=== PATIENT | male | born 1980 | race American Indian/Alaskan Native ===

== ENCOUNTER 2017-01-22 09:43 | Inpatient (IN) | payer MEDICAID, OTHER ==
[2017-01-22 09:43] VITALS: BMI 25.8
[2017-01-22 10:32] LABS: BASO # 0.1 K/uL (0.0-0.2); EOS # 0.2 K/uL (0.0-0.7); EOS % 2.7 % (0.0-4.0); HEMATOCRIT 41.3 % (35.0-51.0); LYMPH # 1.9 K/uL (1.0-4.3); LYMPH % 23.3 % (20.0-40.0); MEAN CELL VOLUME 91.1 fL (80.0-94.0); MEAN CORPUSCULAR HEMOGLOBIN 30.7 pg (27.0-31.0); MEAN CORPUSCULAR HGB CONC 33.7 g/dL (33.0-37.0); MEAN PLATELET VOLUME 7.3 fL (7.2-11.7); MONO # 0.8 K/uL (0.0-0.8); MONO % 9.2 % (0.0-10.0); RED CELL DISTRIBUTION WIDTH 12.9 % (11.5-14.5); WHITE BLOOD COUNT 8.2 K/uL (4.8-10.8)
[2017-01-22 10:37] LABS: RBC URINE < 1 /hpf (0-3); URINE BILIRUBIN NEGATIVE (NEGATIVE); URINE BLOOD NEGATIVE (NEGATIVE); URINE COLOR Yellow (YELLOW); URINE GLUCOSE (UA) NORMAL (Normal); URINE KETONE NEGATIVE (NEGATIVE); URINE LEUKOCYTE ESTERASE NEG Leu/uL (Negative); URINE PROTEIN NEGATIVE (NEGATIVE); URINE UROBILINOGEN NORMAL mg/dL (0.2-1.0); WBC URINE < 1 /hpf (0-5)
[2017-01-22 10:42] LABS: CHLORIDE 105 mmol/L (98-107)
[2017-01-22 10:43] LABS: POTASSIUM 3.9 mmol/L (3.6-5.2); SODIUM 143 mmol/L (132-148)
[2017-01-22 10:45] LABS: ALB/GLOB RATIO 1.3 (1.0-2.1); ALKALINE PHOSPHATASE 80 U/L (38-126); ALT/SGPT 34 U/L (21-72); AST/SGOT 24 U/L (17-59); BILIRUBIN,TOTAL 0.5 mg/dL (0.2-1.3); BLOOD UREA NITROGEN 10 mg/dL (9-20); CARBON DIOXIDE 28 mmol/L (22-30); GFR AFRICAN-AMERICAN > 60; GLUCOSE,RANDOM 83 mg/dL (75-110); TOTAL PROTEIN 6.8 g/dL (6.3-8.3)
[2017-01-22 10:46] LABS: ALCOHOL SERUM < 10 mg/dl (0-10); CALCIUM 8.7 mg/dl (8.6-10.4)
--- NOTE | 2017-01-22 10:49 | C.PDOC ---
History Of Present Illness Pt is here requesting detox from Heroin. Time Seen by Provider: 01/22/17 10:04 Chief Complaint (Nursing): Substance Abuse History Per: Patient Onset/Duration Of Symptoms: Days Current Symptoms Are (Timing): Still Present Suicide/Self Injury Attempted (Context): None Modifying Factor(s): Alcohol, Narcotics, Cocaine Severity: Moderate Associated Symptoms: Depression Additional History Per: Prior Records Past Medical History Reviewed: Historical Data, Nursing Documentation, Vital Signs Vital Signs: Last Vital Signs Temp 98.8 F 01/22/17 09:52 Pulse 85 01/22/17 09:52 Resp 20 01/22/17 09:52 BP 138/89 01/22/17 09:52 Pulse Ox 100 01/22/17 10:49 - Medical History PMH: Depression (Dx at kg put on lexapro), Hepatitis (C) - [facility] Procedures DETOXIFICATION SERVICES FOR SUBSTANCE ABUSE TREATMENT (01/25/16) GROUP COORDINATOR MINING PRODUCTS FOR SUBSTANCE ABUSE TREATMENT, PSYCHOEDUCATION (01/25/16) Family History: States: Unknown Family Hx - Social History Hx Tobacco Use: Yes Hx Alcohol Use: Yes Hx Substance Use: Yes (IVDU Heroin) - Immunization History Hx Tetanus Toxoid Vaccination: No Hx Influenza Vaccination: No Hx Pneumococcal Vaccination: No Review Of Systems Except As Marked, All Systems Reviewed And Found Negative. Constitutional: Negative for: Fever Cardiovascular: Negative for: Chest Pain Respiratory: Negative for: Shortness of Breath Gastrointestinal: Negative for: Vomiting Musculoskeletal: Negative for: Neck Pain Neurological: Negative for: Weakness Psych: Negative for: Psychosis Physical Exam - Physical Exam Appears: Non-toxic, No Acute Distress Skin: Warm, Dry Head: Atraumatic, Normacephalic Eye(s): bilateral: PERRL, EOMI Neck: Normal ROM, Supple Cardiovascular: Rhythm Regular Respiratory: Normal Breath Sounds, No Accessory Muscle Use Gastrointestinal/Abdominal: Soft, No Tenderness Extremity: Normal ROM, Other (Track hansen on arms) Neurological/Psych: Oriented x3, Normal Motor, Normal Sensation ED Course And Treatment - Laboratory Results Result Diagrams: 01/22/17 10:29 01/22/17 10:29 Lab Interpretation: No Acute Changes O2 Sat by Pulse Oximetry: 100 Pulse Ox Interpretation: Normal Progress Note: Pt is medically stable for detox/psych admission. Disposition Counseled Patient/Family Regarding: Studies Performed, Diagnosis - Disposition Disposition: HOSPITALIZED Disposition Time: 12:02 Condition: STABLE - Clinical Impression Clinical Impression: Depressed, Opioid dependence, Drug abuse Decision To Admit - Pt Status Changed To: Hospital Disposition Of: Inpatient - Admit Certification Admit to Inpatient:: After my assessment, the patient will require hospitalization for at least two midnights. This is because of the severity of symptoms shown, intensity of services needed, and/or the medical risk in this patient being treated as an outpatient. - InPatient: Physician Admission Certification: I certify that this patient requires 2 or more midnights of care for the following reason:: Psych - . Bed Request Type: Psychiatry Admitting Physician: Saleem Lindsey Patient Diagnosis: Depressed, Opioid dependence, Drug abuse
[2017-01-22] MEDS ORDERED: Aluminum Hydroxide/Magnesium Hydroxide Susp (30 mL) PO PRN (12:38)
--- NOTE | 2017-01-22 13:12 | PCM.BM ---
<Rosie Nieto - Last Filed: 01/22/17 13:10> Treatment Plan Problems - Problems identified on initial assessmt Heroin Detox Date Initiated: 01/22/17 Time Initiated: 13:11 Assessment reference: NA Status: Active Treatment assets and liabiliti Patient Assests: cooperative, ADL independent Patient Liabilities: live alone (Homeless), poor support system, substance abuse (Heroin Abuse) - Milieu Protocol Maintain good personal hygiene: daily Encourage regular showers, daily Remind patient to perform daily oral care, daily Assist patient to perform ADL's Maintain personal safety: every shift Educate patient to report safety concerns to staff, every shift Monitor environment for contraband/sharps Medication safety: Monitor for expected outcome, potential side effects: daily, Assess barriers to learning: daily, Assess readiness for medication education: daily <Wilda Mendoza - Last Filed: 01/24/17 11:12> Family Contact Family involvement: Famliy/SO not involved - Goals for Treatment Patient goals for treatment: "I guess I want a program." Discharge/Continuing Care - Education Needs Education Needs: Patient Medication, Patient Coping Skills, Patient Placement options, Patient Community resources - Discharge Discharge Criteria: Tolerates medication w/o severe side effects, No longer exhibiting s/s of withdrawal Discharge to:: Substance Abuse Rehab - Treatment Team Participation Discussed with Family/SO: No Was Patient/Family/SO present at Treatment Team Meeting: Yes <Fifi Tam - Last Filed: 01/24/17 11:18> - Diagnosis (1) Depressed Status: Acute Interventions: 01/24/17 11:17 * Assess/adjust medications daily and /or as needed * See patient on an individual basis 7x/week to assess level of depressive behaviors and stability * Discuss risks, benefits, side effects and alternatives of medications * (2) Opioid dependence Status: Acute Interventions: 01/24/17 11:18 * Assess 7x/week regarding severity of withdrawal * Educate regarding risks, benefits, side effects and alternatives of medications * Use Motivational Interviewing for abstinence * Use CBT for relapse prevention * Medication management for withdrawal symptoms * Encourage medication assisted treatment *
--- NOTE | 2017-01-23 12:29 | PCM.PSYCH ---
Initial Psychiatric Evaluation - Initial Psychiatric Evaluation Type of Admission: Voluntary Legal Status: Capacity Chief Complaint (in patient's own words): "I want to stop getting high." History of Present Illness and Precipitating Events: Pt. is seen, chart reviewed, and case discussed with staff. Pt. is a 36 y/o male with depression and long history of heroin dependence. Pt. presented to the ED with suicidal ideation and and reports to having agitation, irritability, anxiety, and depressed mood. He claims that these sxs. are what usually leads him to "get high." As per pt., he uses 7-8 bags of heroin IV daily for the past 7 years. His last use was two days ago. Pt. reports the longest period of sobriety was for 1 year. He reports to currently having withdrawal symptoms including yawning, runny nose , tearing, and feeling cold/hot. Pt. also reports to using cocaine sporadically and smokes 1/2 pack of cigarettes daily. He claims to drinking 1/2 pint of liquor and two, 24oz of beer daily. Pt. reports to being in detox here at [facility] once and rehab 2x. Pt. denies visual and auditory hallucinations and denies suicidal and homicidal ideation. After care discussed. Pt. states he wants to find a program to go to after discharge. Psych Hx: depression (was on Lexapro) PMH: denies, but according to previous records, has history of Hep.C Allergies: denies Family Psych Hx: unknown (both parents at young age) Social Hx: single; 3 children; currently unemployed and homeless (pt. states he "just gets by"); highest education completed--high school Current Medications: Active Medications Generic Name Dose Route Start Last Admin Trade Name Freq PRN Reason Stop Dose Admin Al Hydrox/Mg Hydrox/Simethicone 30 ml 01/22/17 12:38 Maalox 30 Ml PO TID PRN Indigestion / Heartburn Clonidine HCl 0.1 mg 01/22/17 12:38 Catapres PO Q8 PRN COWS Score More or Equal to 5 Gabapentin 300 mg 01/22/17 14:00 01/23/17 09:40 Neurontin PO 300 mg TID LINDY Administration Haloperidol 5 mg 01/22/17 12:46 Haldol PO Q1H PRN agitation, max 4x/24h Hydroxyzine HCl 50 mg 01/22/17 12:39 Atarax PO Q6H PRN Anxiety Loperamide HCl 2 mg 01/22/17 12:38 Imodium PO Q8 PRN Diarrhea Methadone HCl 15 mg 01/23/17 10:00 01/23/17 09:40 Methadone PO 01/27/17 09:59 15 mg Q24H LINDY Administration Taper Mirtazapine 15 mg 01/22/17 22:00 01/22/17 23:00 Remeron PO 15 mg HS LINDY Administration Ondansetron HCl 4 mg 01/22/17 12:38 Zofran Tab PO Q8 PRN Nausea/Vomiting Pneumococcal Polyvalent Vaccine 0.5 ml 01/25/17 10:00 Pneumovax 23 Vaccine IM 01/25/17 10:01 .ONCE ONE Trazodone HCl 100 mg 01/22/17 12:39 01/22/17 23:00 Desyrel PO 100 mg HS PRN Administration Insomnia Past Psychiatric History - Past Psychiatric History Previous Treatment History: None Pertinent Medical Hx (Current Medical&Sleep Prob, Allergies): Allergies Allergy/AdvReac Type Severity Reaction Status Date / Time No Known Allergies Allergy Verified 01/22/17 09:55 No Known Home Med 04/01/15 Review of Systems - Review of Systems All systems: reviewed and no additional remarkable complaints except - Psychiatric Psychiatric: Anxiety, Depression, Irritability, Suicidal Ideation Mental Status Examination - Personal Presentation Personal Presentation: Looks stated age - Affect Affect: Constricted, Depressed - Motor Activity Motor Activity: Calm - Reliability in Providing Information Reliability in Providing Information: Fair - Speech Speech: Organized - Mood Mood: Depressed, Anxious - Formal Thought Process Formal Thought Process: No Impairment - Obsessions/Compulsions Obsessions: No Compulsions: No - Cognitive Functions Orientation: Person, Place, Situation, Time Sensorium: Alert Attention/Concentration: Attentive Abstract Thinking: [place] Estimate of Intelligence: Below average Judgement: Imparied, as evidence by: Poor judgement, Imparied, as evidence by: Lack of insight into illness - Risk Risk: Suicidal, Withdrawal, Diminished functioning - Limitations Limitations: Living alone DSM 5 DX - DSM 5 DSM 5 Diagnosis: Major depressive disorder recurrent severe without psychotic features Opioid use disorder severe Opioid withdrawal Cocaine use disorder severe - Recommended/Plan of Treatment Treatment Recommendations and Plan of Treatment: Major depressive disorder recurrent severe without psychotic features Remeron 15 mg PO HS Groups and individual treatment Support, psychoeducation, CBT Opioid use disorder severe CBT for relapse prevention Psychoeducation Supportive therapy, individual therapy Use [place] for abstinence Opioid withdrawal Methadone taper Gabapentin for augmentation Support and psychoeducation daily Attend group activities daily Consider and encourage MAT Refer to after care. Pt. will meet with SW to figure out a program Cocaine use disorder severe CBT for relapse prevention Psychoeducation Supportive therapy, individual therapy Use [place] for abstinence Projected ELOS: 6-7 days - Smoking Cessation Smoking Cessation Initiated: No
--- NOTE | 2017-01-23 12:30 | PCM.PYCHPN ---
Psychiatric Progress Note - Psychiatric Progress Note Patient seen today, length of contact: 15 min. Patient Chief Complaint: "I need help." Problems Identified/Issues Discussed: Pt. is seen, chart reviewed, and case discussed with staff. Pt. reports to still having some withdrawal sxs.--sneezing, leg pain, tearing, and sweats. Pt. denies suicidal and homicidal ideation. Pt. also denies visual and auditory hallucinations. He remained isolated and withdrawn and admits of depressed mood and at times feelings of worthlessness. Symptoms are improving, but needs more time to stabilize. After care discussed, support and psychoeducation given. Pt. will talk to to find a program to go to after discharge. Medication Change: No Medical Record Reviewed: Yes Mental Status Examination - Cognitive Function Orientation: Person, Place, Situation, Time Memory: Intact Attention: WNL Concentration: Poor Association: WNL Fund of Knowledge: WNL - Mood Mood: Depressed, Anxious - Affect Affect: Constricted, Depressed - Speech Speech: Soft - Formal Thought Process Formal Thought Process: No Impairment - Suicidal Ideation Suicidal Ideation: No - Homicidal Ideation Homicidal Ideation: No Goal/Treatment Plan - Goal/Treatment Plan Need for Continued Stay: Remain at risks for inpatient hospitalization, Severe depression anxiety, Discharge may exacerbated symptoms Progress Toward Problem(s) and Goals/Treatment Plan: Major depressive disorder recurrent severe without psychotic features Remeron 15 mg PO HS Trazodone 100 mg pO QHS Groups and individual treatment Support, psychoeducation, CBT Opioid use disorder severe CBT for relapse prevention Psychoeducation Supportive therapy, individual therapy Use [place] for abstinence Opioid withdrawal Methadone taper Gabapentin for augmentation Support and psychoeducation daily Attend group activities daily Consider and encourage MAT Refer to after care. Pt. will meet with to figure out a program. Cocaine use disorder severe CBT for relapse prevention Psychoeducation Supportive therapy, individual therapy Use [place] for abstinence - Smoking Cessation Smoking Cessation Initiated: No
--- NOTE | 2017-01-24 11:15 | PCM.PYCHPN ---
Psychiatric Progress Note - Psychiatric Progress Note Patient seen today, length of contact: 15 min. Patient Chief Complaint: I feel better. Problems Identified/Issues Discussed: Pt. is seen, chart reviewed, and case discussed with staff. Pt. reports he feels better with the medications and slept well through the night. Symptoms are improving, but needs more time to stabilize. After care discussed, support and psychoeducation given. Pt. is open to [facility] or maybe an inpatient rehab in [place]. Medication Change: No Medical Record Reviewed: Yes Mental Status Examination - Cognitive Function Orientation: Person, Place, Situation, Time Memory: Intact Attention: WNL Concentration: WNL Association: [facility] Fund of Knowledge: WN - Mood Mood: Depressed, Anxious - Affect Affect: Constricted, Depressed - Speech Speech: Soft - Formal Thought Process Formal Thought Process: No Impairment - Suicidal Ideation Suicidal Ideation: No - Homicidal Ideation Homicidal Ideation: No Goal/Treatment Plan - Goal/Treatment Plan Need for Continued Stay: Remain at risks for inpatient hospitalization, Severe depression anxiety, Discharge may exacerbated symptoms Progress Toward Problem(s) and Goals/Treatment Plan: Major depressive disorder recurrent severe without psychotic features Remeron 15 mg PO HS Trazodone 100 mg pO QHS Groups and individual treatment Support, psychoeducation, CBT Opioid use disorder severe CBT for relapse prevention Psychoeducation Supportive therapy, individual therapy Use [place] for abstinence Opioid withdrawal Methadone taper Gabapentin for augmentation Support and psychoeducation daily Attend group activities daily Consider and encourage MAT Refer to after care. Pt. decide on [facility] or inpatient rehab. Cocaine use disorder severe CBT for relapse prevention Psychoeducation Supportive therapy, individual therapy Use [place] for abstinence Estimated Date of D/C: 01/26/17
[2017-01-24 16:04] VITALS: O2SAT 95
[2017-01-25 07:30] VITALS: BP 130/85; PULSE 78; RESP 18; TEMP 97.7
--- NOTE | 2017-01-25 09:33 | PCM.PYCHDC ---
Mental Status Examination - Mental Status Examination Orientation: Person, Place, Situation, Time Memory: Intact Mood: Neutral Affect: Constricted Speech: Soft Attention: WNL Concentration: WNL Association: WNL Fund of Knowledge: WNL Formal Thought Process: No Impairment Description of patient's judgement and insight: good, fair Psychotic Thoughts and Behaviors: denies any AVH Suicidal Ideation: No Current Homicidal Ideation?: No Discharge Summary - Discharge Note Reason for Hospitalization: Pt. is seen, chart reviewed, and case discussed with staff. Pt. is a 36 y/o male with depression and long history of heroin dependence. Pt. presented to the ED with suicidal ideation and and reports to having agitation, irritability, anxiety, and depressed mood. He claims that these sxs. are what usually leads him to "get high." As per pt., he uses 7-8 bags of heroin IV daily for the past 7 years. His last use was two days ago. Pt. reports the longest period of sobriety was for 1 year. He reports to currently having withdrawal symptoms including yawning, runny nose , tearing, and feeling cold/hot. Pt. also reports to using cocaine sporadically and smokes 1/2 pack of cigarettes daily. He claims to drinking 1/2 pint of liquor and two, 24oz of beer daily. Pt. reports to being in detox here at [facility] once and rehab 2x. Pt. denies visual and auditory hallucinations and denies suicidal and homicidal ideation. After care discussed. Pt. states he wants to find a program to go to after discharge. Consultations:: List each consultation separately and include: 1. Reason for request. 2. Findings. 3. Follow-up Summary of Hospital Course include:: 1. Description of specific treatment plan utilized for patients during their course of treatmen. 2. Summarize the time- course for resolution of acute symptoms and/or regressed behaviors. 3. Describe issues identified and worked on during hospitalization. 4. Describe medication utilized. 5. Describe medical problems identified and treated. 6. Reassessment of suicide risk Summary of Hospital Course: During the course of his stay, patient (pt) started progressively improving and he no longer remained irritable, depressed, and suicidal. His mood was improved and he started attending groups and meetings and started socializing. Patient denied any feelings of hopelessness, helplessness, and worthlessness, denied any problem with the sleep or appetite, denied suicidal ideation or homicidal ideation. Pt denied any auditory or visual hallucinations. Some changes were made in his current medications and patient was discharged on following medications. He tolerated these medications very well and denied any side effects. CBT and [place] were used. - Diagnosis (1) Depressed Status: Acute (2) Opioid dependence Status: Acute - Final Diagnosis (DSM 5) Condition upon Discharge: STABLE DSM 5: Major depressive disorder recurrent severe without psychotic features Opioid use disorder severe Opioid withdrawal Cocaine use disorder severe Disposition: HOME/ ROUTINE Follow-up Treatment Plan: Education: Pt was educated and counseled about the risks and benefits of taking and not taking medications. Pt was educated and counseled about the risks of drinking and abusing drugs. Pt was educated and counseled to go to the ER or call 911 if pt develop suicidal ideation or homicidal ideation, worsening of symptoms or severe side effects of the meds. Prescriptions/Medication Reconciliation: Gabapentin [Neurontin] 300 mg PO BID #60 cap Mirtazapine [Remeron] 15 mg PO HS #30 tab traZODone [Desyrel] 100 mg PO HS PRN #30 tab PRN Reason: Insomnia - Smoking Cessation Smoking Cessation Medication prescribed: No - Antipsychotic Medications Pt discharged on 2 or more routine antipsychotic medications: No
[2017-01-25] MEDS ORDERED: Pneumococcal 23-Valent Vaccine IM ONE (10:00)
== END 2017-01-25 12:20 | disposition home or self-care (01) | DRG 885 ==
LOC: C.ER 09:43 → C.5E 12:03
PROVIDERS: ADMIT Psychiatry & Neurology Psychiatry; ATTEND Psychiatry & Neurology Psychiatry
PROC: GZ58ZZZ Individual Psychotherapy, Cognitive-Behavioral (ICD-10-PCS; principal; 2017-01-22)
PROC: GZ56ZZZ Individual Psychotherapy, Supportive (ICD-10-PCS; 2017-01-22)
PROC: HZ52ZZZ Individual Psychotherapy for Substance Abuse Treatment, Cognitive-Behavioral (ICD-10-PCS; 2017-01-22)
PROC: HZ59ZZZ Individual Psychotherapy for Substance Abuse Treatment, Supportive (ICD-10-PCS; 2017-01-22)
PROC: HZ56ZZZ Individual Psychotherapy for Substance Abuse Treatment, Psychoeducation (ICD-10-PCS; 2017-01-22)
PROC: HZ2ZZZZ Detoxification Services for Substance Abuse Treatment (ICD-10-PCS; 2017-01-22)
DX: F33.2 Major depressive disorder, recurrent severe without psychotic features (principal); R45.851 Suicidal ideations; F11.23 Opioid dependence with withdrawal; F17.210 Nicotine dependence, cigarettes, uncomplicated; F14.90 Cocaine use, unspecified, uncomplicated; F41.9 Anxiety disorder, unspecified

== ENCOUNTER 2018-05-16 06:40 | Inpatient (IN) | payer MEDICAID, OTHER ==
[2018-05-16 06:40] VITALS: BMI 25.1
--- NOTE | 2018-05-16 06:58 | C.PDOC ---
History Of Present Illness Patient is a 38 year old male who presents to the ED for SI. Patient says that he does not have a plan, but he has been feeling this way for several days and has walked to the hospital form [place]. He has stopped drinking last night but admits to using heroin and cocaine several hours ago, by inhalation and injection. Patient denies taking any pills, having falls, hallucinations, trauma, or any other medical complaints at the present moment. Time Seen by Provider: 05/16/18 06:57 Chief Complaint (Nursing): Psychiatric Evaluation History Per: Patient History/Exam Limitations: no limitations Onset/Duration Of Symptoms: Days Current Symptoms Are (Timing): Still Present Suicide/Self Injury Attempted (Context): None Modifying Factor(s): Alcohol, Cocaine, Other (heroin) Associated Symptoms: Depression, Suicidal Thoughts. denies: Suicidal Plan Involuntary Hold By: None Recent travel outside of the [place]: No Additional History Per: Patient Past Medical History Reviewed: Historical Data, Nursing Documentation, Vital Signs - Medical History PMH: Anemia, Depression, Hepatitis (C) Denies: Diabetes, HIV, HTN, Chronic Kidney Disease, Seizures, Sexually Transmitted Disease Surgical History: No Surg Hx - [facility] Procedures DETOXIFICATION SERVICES FOR SUBSTANCE ABUSE TREATMENT (01/22/17) GROUP MANAGER CABLE FOR SUBSTANCE ABUSE TREATMENT, PSYCHOEDUCATION (01/25/16) INDIV PSYCHOTHERAPY FOR SUBSTANCE ABUSE TREATMENT, SUPPORT (01/22/17) INDIV PSYCHOTHERAPY FOR SUBSTANCE ABUSE, COGNITIV BEHAVIORAL (01/22/17) INDIV PSYCHOTHERAPY FOR SUBSTANCE ABUSE, PSYCHOEDUCATION (01/22/17) INDIVIDUAL PSYCHOTHERAPY, COGNITIVE-BEHAVIORAL (01/22/17) INDIVIDUAL PSYCHOTHERAPY, SUPPORTIVE (01/22/17) Family History: States: Unknown Family Hx - Social History Hx Tobacco Use: Yes Hx Alcohol Use: Yes Hx Substance Use: Yes - Immunization History Hx Tetanus Toxoid Vaccination: No Hx Influenza Vaccination: No Hx Pneumococcal Vaccination: No Review Of Systems Constitutional: Negative for: Fever Cardiovascular: Negative for: Chest Pain Respiratory: Negative for: Shortness of Breath Gastrointestinal: Negative for: Nausea, Vomiting Neurological: Negative for: Weakness Psych: Positive for: Depression, Suicidal ideation Physical Exam - Physical Exam Appears: Non-toxic, No Acute Distress Skin: Normal Color, Warm, Dry Head: Atraumatic, Normacephalic Eye(s): bilateral: Normal Inspection, PERRL, EOMI Ear(s): Bilateral: Normal Nose: Normal Oral Mucosa: Moist Tongue: Normal Appearing Lips: Normal Appearing Teeth: Normal Dentition Gingiva: Normal Appearing Throat: Normal, No Erythema Neck: Normal ROM, Trachea Midline, Supple, Other (no meningeal signs-negative kernig's and brudzinkski's ) Chest: Symmetrical Cardiovascular: Rhythm Regular, No Friction Rub Respiratory: Normal Breath Sounds, No Rales, No Rhonchi, No Wheezing Gastrointestinal/Abdominal: Normal Exam, Soft, No Tenderness, No Distention Back: Normal Inspection, No CVA Tenderness, No Vertebral Tenderness Extremity: Bilateral: Normal Color And Temperature Pulses: Left Dorsalis Pedis: Normal, Right Dorsalis Pedis: Normal Neurological/Psych: Oriented x3, Normal Speech, Normal Cognition, Normal Cranial Nerves, No Cerebellar Signs, Normal Motor, Normal Sensation Gait: Steady ED Course And Treatment - Laboratory Results Result Diagrams: 05/16/18 07:36 05/16/18 07:36 O2 Sat by Pulse Oximetry: 97 (on RA) Pulse Ox Interpretation: Normal Medical Decision Making Medical Decision Makin yr old male w/ hx of heroin, cocaine use p/w SI. No plan, pt notes shooting up in his veins snorting cocaine and heroin earlier. No signs of infection at injection sites. Normal neuro exam, walking well in NAD. Given SI placed on 1:1 and CRISIS called. Plan: * Bloodwork * Urinalysis * 1:1 * Pending crisis evaluation 1111 K3.2, repleted pt in NAD labs otherwise largely unremarkable +cocaine, +heroin +marijuana no cp medically clear pending CRISIS 1150 appreciate consult w/ CRISIS: to be admitted to Dr. Moore Service: depression pt in NAD, agreeable to plan. Disposition - Disposition Disposition Time: 11:11 Condition: GOOD Forms: [employer] (Italian) - Clinical Impression Clinical Impression: Major depressive disorder, single episode, unspecified - Scribe Statement The provider has reviewed the documentation as recorded by the Sukhi Lo All medical record entries made by the Scribe were at my direction and personally dictated by me. I have reviewed the chart and agree that the record accurately reflects my personal performance of the history, physical exam, medical decision making, and the department course for this patient. I have also personally directed, reviewed, and agree with the discharge instructions and disposition.
[2018-05-16 07:41] LABS: BASO # 0.1 K/uL (0.0-0.2); BASO % 0.9 % (0.0-2.0); EOS # 0.2 K/uL (0.0-0.7); EOS % 1.8 % (0.0-4.0); HEMOGLOBIN 12.8 g/dL (12.0-18.0); LYMPH # 2.9 K/uL (1.0-4.3); LYMPH % 29.7 % (20.0-40.0); MEAN CELL VOLUME 91.2 fL (80.0-94.0); MEAN CORPUSCULAR HEMOGLOBIN 31.5 pg (27.0-31.0); MEAN CORPUSCULAR HGB CONC 34.5 g/dL (33.0-37.0); MEAN PLATELET VOLUME 6.7 fL (7.2-11.7); MONO # 0.6 K/uL (0.0-0.8); MONO % 6.5 % (0.0-10.0); NEUT % 61.1 % (50.0-75.0); RBC 4.08 Mil/uL (4.40-5.90); RED CELL DISTRIBUTION WIDTH 13.4 % (11.5-14.5); WHITE BLOOD COUNT 9.8 K/uL (4.8-10.8)
[2018-05-16 07:56] LABS: ALB/GLOB RATIO 1.4 (1.0-2.1); ALBUMIN 4.2 g/dL (3.5-5.0); ALT/SGPT 36 U/L (21-72); AST/SGOT 26 U/L (17-59); BLOOD UREA NITROGEN 13 mg/dL (9-20); CALCIUM 8.6 mg/dl (8.6-10.4); GFR NON-AFRICAN AMERICAN > 60
[2018-05-16 07:59] LABS: ACETAMINOPHEN < 10.0 ug/mL (10.0-30.0); SALICYLATE < 1.0 mg/dL 1
[2018-05-16] MEDS ORDERED: Potassium Chloride 20 mEq ER Tab PO STA (09:06)
[2018-05-16] MEDS ORDERED: Potassium Chloride 20 mEq ER Tab PO ONE (09:12)
[2018-05-16 10:12] LABS: SQUAMOUS EPITHIAL < 1 /hpf (0-5); URINE BILIRUBIN NEGATIVE (NEGATIVE); URINE BLOOD NEGATIVE (NEGATIVE); URINE CLARITY Clear (Clear); URINE COLOR Yellow (YELLOW); URINE GLUCOSE (UA) NORMAL (Normal); URINE LEUKOCYTE ESTERASE NEG Leu/uL (Negative); URINE PROTEIN NEGATIVE (NEGATIVE)
[2018-05-16 10:27] LABS: BARBITURATES, UR NEGATIVE (NEGATIVE); BENZODIAZEPINES, UR NEGATIVE (NEGATIVE); PHENCYCLIDINE, UR NEGATIVE (NEGATIVE)
[2018-05-16 11:32] LABS: OPIATES, UR POSITIVE (NEGATIVE)
--- NOTE | 2018-05-16 12:28 | PCM.BM ---
<Jazmyn Sutton - Last Filed: 05/16/18 12:26> Treatment Plan Problems - Problems identified on initial assessmt depression Date Initiated: 05/16/18 Time Initiated: 12:26 Assessment reference: NA Status: Active Treatment assets and liabiliti Patient Assests: cooperative, ADL independent, good past tx response, cognitively intact Patient Liabilities: relationship conflicts, substance abuse - Milieu Protocol Maintain good personal hygiene: daily Encourage regular showers Conduct patient checks and document Observation sheet: Q15 minutes Maintain personal safety: every shift Educate patient to report safety concerns to staff, every shift Monitor environment for contraband/sharps Medication safety: Monitor for expected outcome, potential side effects: every shift, Assess barriers to learning: every shift, Assess readiness for medication education: every shift <Fifi Tam - Last Filed: 05/17/18 11:14> - Diagnosis (1) Depressed Status: Acute Interventions: 05/17/18 11:15 * Assess/adjust medications daily and /or as needed * See patient on an individual basis 7x/week to assess symptoms of depression * Monitor for side effects & effectiveness of medications * (2) Opioid dependence Status: Acute Interventions: 05/17/18 11:15 * Assess 7x/week regarding severity of withdrawal * Educate regarding risks, benefits, side effects and alternatives of medications * Use Motivational Interviewing for abstinence * Use CBT for relapse prevention * Medication management for withdrawal symptoms * Encourage medication assisted treatment * <Wilda Mendoza - Last Filed: 05/17/18 12:00> Family Contact Family involvement: Famliy/SO not involved - Goals for Treatment Patient goals for treatment: "I want to go to rehab." Discharge/Continuing Care - Education Needs Education Needs: Patient Medication, Patient Coping Skills, Patient Placement options, Patient Community resources - Discharge Discharge Criteria: Tolerates medication w/o severe side effects, No longer exhibiting s/s of withdrawal Discharge to:: Substance Abuse Rehab - Treatment Team Participation Discussed with Family/SO: No Was Patient/Family/SO present at Treatment Team Meeting: Yes
[2018-05-16] MEDS ORDERED: Aluminum Hydroxide/Magnesium Hydroxide Susp (30 mL) PO PRN (14:25)
[2018-05-16] MEDS: Multiple Vitamins Tab PO SCH (14:57)
[2018-05-17] MEDS: Multiple Vitamins Tab PO SCH (10:36)
--- NOTE | 2018-05-17 11:00 | PCM.PSYCH ---
Initial Psychiatric Evaluation - Initial Psychiatric Evaluation Type of Admission: Voluntary Legal Status: Capacity Chief Complaint (in patient's own words): I was feeling depressed and suicidal.' History of Present Illness and Precipitating Events: Pt is a 38 years old male who is currently single and unemployed, came to the ED with depressed mood and suicidal ideation. Patient reports history of few inpatient psychiatric hospitalizations as well as history of few detoxes in the past. He reports that soon after discharge from the [facility] almost 2 years ago, he stopped taking medications and relapsed on drugs. He reports of abusing 5-6 bags of heroin IV with 5 bottles of cocaine. He also reports of drinking almost a liter of vodka daily. As per the patient, yesterday he consumed more than 3 pints of vodka, became increasingly depressed and started having withdrawal symptoms, so he came to the hospital to get help. Reports depressed mood, feelings of hopelessness and helplessness and worthlessness. He also reports poor appetite, and poor sleep. He also reports at times irritability and agitation. However he denies any auditory hallucinations or any paranoia. He reports withdrawal symptoms from heroin and alcohol including nausea, vomiting, diarrhea, shakes, sweating and tremors. Past Medical History None reported Current Medications: Active Medications Generic Name Dose Route Start Last Admin Trade Name Freq PRN Reason Stop Dose Admin Al Hydrox/Mg Hydrox/Simethicone 30 ml 05/16/18 14:25 Maalox 30 Ml PO TID PRN Indigestion / Heartburn Chlordiazepoxide 25 mg 05/16/18 14:24 05/17/18 10:36 Librium PO 25 mg Q4H PRN Administration Alcohol Withdrawal Clonidine HCl 0.1 mg 05/16/18 14:25 Catapres PO Q4 PRN COWS Score More or Equal to 5 Folic Acid 1 mg 05/16/18 14:30 05/17/18 10:36 Folic Acid PO 1 mg DAILY LINDY Administration Loperamide HCl 2 mg 05/16/18 14:25 Imodium PO Q8 PRN Diarrhea Multivitamins 1 tab 05/16/18 14:30 05/17/18 10:36 Hexavitamin PO 1 tab DAILY LINDY Administration Ondansetron HCl 4 mg 05/16/18 14:25 Zofran Tab PO Q8 PRN Nausea/Vomiting Pseudoephedrine HCl 60 mg 05/16/18 14:25 Sudafed Tab PO QID PRN Nasal/Sinus Congestion Thiamine HCl 100 mg 05/16/18 14:30 05/17/18 10:36 Vitamin B1 Tab PO 100 mg DAILY LINDY Administration Trazodone HCl 50 mg 05/16/18 14:24 05/16/18 22:01 Desyrel PO 50 mg HS PRN Administration Insomnia Past Psychiatric History - Past Psychiatric History Previous Treatment History: Inpatient Pertinent Medical Hx (Current Medical&Sleep Prob, Allergies): Allergies Allergy/AdvReac Type Severity Reaction Status Date / Time No Known Allergies Allergy Verified 05/01/18 18:50 No Known Home Med 05/16/18 Review of Systems - Review of Systems All systems: reviewed and no additional remarkable complaints except - Psychiatric Psychiatric: Anxiety, Depression, Hopelessness, Irritability, Suicidal Ideation. absent: Auditory Hallucinations Mental Status Examination - Personal Presentation Personal Presentation: Looks stated age - Affect Affect: Constricted, Depressed - Motor Activity Motor Activity: Calm - Reliability in Providing Information Reliability in Providing Information: Fair - Speech Speech: Organized - Mood Mood: Depressed, Anxious - Formal Thought Process Formal Thought Process: No Impairment - Obsessions/Compulsions Obsessions: No Compulsions: No - Cognitive Functions Orientation: Person, Place, Situation, Time Sensorium: Alert Attention/Concentration: Attentive Abstract Thinking: [place] Estimate of Intelligence: Below average Judgement: Imparied, as evidence by: Poor judgement, Imparied, as evidence by: Lack of insight into illness - Risk Risk: Suicidal, Withdrawal, Diminished functioning - Limitations Limitations: Living alone DSM 5 DX - DSM 5 DSM 5 Diagnosis: Major depressive disorder recurrent severe without psychotic features Opioid use disorder severe Opioid withdrawal Alcohol use disorder severe Alcohol withdrawal Cocaine use disorder severe - Recommended/Plan of Treatment Treatment Recommendations and Plan of Treatment: Major depressive disorder recurrent severe without psychotic features Opioid use disorder severe Opioid withdrawal Alcohol use disorder severe Alcohol withdrawal Cocaine use disorder severe CBT Psychoeducation Supportive therapy and group therapy Librium taper Methadone taper Trazodone 50 mg p.o. nightly Hydroxyzine 25 mg p.o. every 6 hours as needed Neurontin 100 mg p.o. 3 times daily Remeron 15 mg p.o. nightly -
[2018-05-17 12:20] LABS: ALB/GLOB RATIO 1.5 (1.0-2.1); ALBUMIN 4.2 g/dL (3.5-5.0); ALT/SGPT 25 U/L (21-72); AST/SGOT 30 U/L (17-59); BLOOD UREA NITROGEN 11 mg/dL (9-20); GFR NON-AFRICAN AMERICAN > 60
[2018-05-18] MEDS: Multiple Vitamins Tab PO SCH (10:17)
[2018-05-18] MEDS ORDERED: Influenza Vaccine 60 mcg/0.5 mL SYR (4YR UP) IM ONE (20:50)
--- NOTE | 2018-05-18 23:07 | PCM.PYCHPN ---
Psychiatric Progress Note - Psychiatric Progress Note Patient seen today, length of contact: 15-minute Patient Chief Complaint: I am not feeling much better. Problems Identified/Issues Discussed: Patient seen, chart reviewed, case discussed with the staff. Issues related to illness and treatment were discussed with the patient and staff. Reported compliant with treatment with no adverse effect. Calm and cooperative. Reported not feeling much better. Still having some withdrawal symptoms including sweating, body aches and headache with sleep difficulty. Awake, alert and oriented x 3. Mood reported as okay. Affect appropriate. Memory intact. Aftercare discussed with the patient. Patient needs more time for stabilization. Denied any delusions, auditory or visual hallucinations, suicidal ideations or homicidal ideations at the time of evaluation. Medical Problems: None reported Diagnostic Results: Reviewed DSM 5 Symptoms Update: Some improvement with treatment Medication Change: No Medical Record Reviewed: Yes Mental Status Examination - Cognitive Function Orientation: Person, Place, Situation, Time Memory: Intact Attention: WNL Concentration: WNL Association: WNL Fund of Knowledge: [facility] Decription of patient's judgement and insights: Fair - Mood Mood: Anxious - Affect Affect: Other (Appropriate) - Speech Speech: Appropriate - Formal Thought Process Formal Thought Process: No Impairment Psychotic Thoughts and Behaviors: None - Suicidal Ideation Suicidal Ideation: No - Homicidal Ideation Homicidal Ideation: No Goal/Treatment Plan - Goal/Treatment Plan Need for Continued Stay: Remain at risks for inpatient hospitalization, Discharge may exacerbated symptoms, Severe functional impairment Progress Toward Problem(s) and Goals/Treatment Plan: Patient education. Supportive therapy. CBT for relapse prevention. [place] for abstinence. Continue treatment as before. Estimated Date of D/C: 05/23/18 - Smoking Cessation Smoking Cessation Initiated: No
[2018-05-19] MEDS: Multiple Vitamins Tab PO SCH (09:49)
[2018-05-19] MEDS ORDERED: Pneumococcal 23-Valent Vaccine IM ONE (10:00)
[2018-05-20] MEDS: Multiple Vitamins Tab PO SCH (09:05)
--- NOTE | 2018-05-20 10:11 | PCM.PYCHPN ---
Psychiatric Progress Note - Psychiatric Progress Note Patient seen today, length of contact: 15-minute Patient Chief Complaint: I was feeling depressed and suicidal.' Medication Change: No Medical Record Reviewed: Yes Mental Status Examination - Cognitive Function Orientation: Person, Place, Situation, Time Memory: Intact Attention: WNL Concentration: WNL Association: WNL Fund of Knowledge: WNL - Mood Mood: Anxious - Affect Affect: Other (Appropriate) - Speech Speech: Appropriate - Formal Thought Process Formal Thought Process: No Impairment - Suicidal Ideation Suicidal Ideation: No - Homicidal Ideation Homicidal Ideation: No Goal/Treatment Plan - Goal/Treatment Plan Need for Continued Stay: Remain at risks for inpatient hospitalization, Disch arge may exacerbated symptoms, Severe functional impairment Progress Toward Problem(s) and Goals/Treatment Plan: Major depressive disorder recurrent severe without psychotic features Opioid use disorder severe Opioid withdrawal Alcohol use disorder severe Alcohol withdrawal Cocaine use disorder severe CBT Psychoeducation Supportive therapy and group therapy Librium taper Methadone taper Trazodone 50 mg p.o. nightly Hydroxyzine 25 mg p.o. every 6 hours as needed Neurontin 100 mg p.o. 3 times daily Remeron 15 mg p.o. nightly - Estimated Date of D/C: 05/23/18
[2018-05-21 06:55] VITALS: BP 145/95; PULSE 68; RESP 18; TEMP 98.3; O2SAT 98
[2018-05-21] MEDS: Multiple Vitamins Tab PO SCH (09:02)
--- NOTE | 2018-05-21 11:02 | PCM.PYCHDC ---
Mental Status Examination - Mental Status Examination Orientation: Person, Place, Situation, Time Memory: Intact Mood: Neutral Affect: Constricted Speech: Soft Attention: WNL Concentration: WNL Association: WNL Fund of Knowledge: WNL Formal Thought Process: No Impairment Description of patient's judgement and insight: good, fair Psychotic Thoughts and Behaviors: denies any AVH Suicidal Ideation: No Current Homicidal Ideation?: No Discharge Summary - Discharge Note Reason for Hospitalization: Pt is a 38 years old male who is currently single and unemployed, came to the ED with depressed mood and suicidal ideation. Patient reports history of few inpatient psychiatric hospitalizations as well as history of few detoxes in the past. He reports that soon after discharge from the [facility] almost 2 years ago, he stopped taking medications and relapsed on drugs. He reports of abusing 5-6 bags of heroin IV with 5 bottles of cocaine. He also reports of drinking almost a liter of vodka daily. As per the patient, yesterday he consumed more than 3 pints of vodka, became increasingly depressed and started having withdrawal symptoms, so he came to the hospital to get help. Reports depressed mood, feelings of hopelessness and helplessness and worthlessness. He also reports poor appetite, and poor sleep. He also reports at times irritability and agitation. However he denies any auditory hallucinations or any paranoia. He reports withdrawal symptoms from heroin and alcohol including nausea, vomiting, diarrhea, shakes, sweating and tremors. Consultations:: List each consultation separately and include: 1. Reason for request. 2. Findings. 3. Follow-up Summary of Hospital Course include:: 1. Description of specific treatment plan utilized for patients during their course of treatmen. 2. Summarize the time- course for resolution of acute symptoms and/or regressed behaviors. 3. Describe issues identified and worked on during hospitalization. 4. Describe medication utilized. 5. Describe medical problems identified and treated. 6. Reassessment of suicide risk Summary of Hospital Course: Pt is a 38 years old male who is currently single and unemployed, came to the ED with depressed mood and suicidal ideation. Patient reports history of few inpatient psychiatric hospitalizations as well as history of few detoxes in the past. He reports that soon after discharge from the [facility] almost 2 years ago, he stopped taking medications and relapsed on drugs. He reports of abusing 5-6 bags of heroin IV with 5 bottles of cocaine. He also reports of drinking almost a liter of vodka daily. As per the patient, yesterday he consumed more than 3 pints of vodka, became increasingly depressed and started having withdrawal symptoms, so he came to the hospital to get help. Reports depressed mood, feelings of hopelessness and helplessness and worthlessness. He also reports poor appetite, and poor sleep. He also reports at times irritability and agitation. However he denies any auditory hallucinations or any paranoia. He reports withdrawal symptoms from heroin and alcohol including nausea, vomiting, diarrhea, shakes, sweating and tremors. Past Medical History None reported - Diagnosis (1) Depressed Current Visit: No Status: Acute (2) Opioid dependence Current Visit: No Status: Acute - Final Diagnosis (DSM 5) Condition upon Discharge: GOOD Disposition: HOME/ ROUTINE Follow-up Treatment Plan: Major depressive disorder recurrent severe without psychotic features Opioid use disorder severe Opioid withdrawal Alcohol use disorder severe Alcohol withdrawal Cocaine use disorder severe CBT Psychoeducation Supportive therapy and group therapy Librium taper Methadone taper Trazodone 50 mg p.o. nightly Hydroxyzine 25 mg p.o. every 6 hours as needed Neurontin 100 mg p.o. 3 times daily Remeron 15 mg p.o. nightly - Prescriptions/Medication Reconciliation: Mirtazapine [Remeron] 15 mg PO HS #30 tab traZODone [Desyrel] 50 mg PO HS PRN #30 tab PRN Reason: Insomnia
== END 2018-05-21 12:57 | disposition home or self-care (01) | DRG 430 ==
LOC: C.ER 06:40 → C.5E 11:47
PROVIDERS: ADMIT Psychiatry & Neurology Psychiatry; ATTEND Psychiatry & Neurology Psychiatry
PROC: GZHZZZZ Group Psychotherapy (ICD-10-PCS; principal; 2018-05-16)
PROC: HZ52ZZZ Individual Psychotherapy for Substance Abuse Treatment, Cognitive-Behavioral (ICD-10-PCS; 2018-05-16)
PROC: HZ59ZZZ Individual Psychotherapy for Substance Abuse Treatment, Supportive (ICD-10-PCS; 2018-05-16)
PROC: HZ56ZZZ Individual Psychotherapy for Substance Abuse Treatment, Psychoeducation (ICD-10-PCS; 2018-05-16)
PROC: HZ2ZZZZ Detoxification Services for Substance Abuse Treatment (ICD-10-PCS; 2018-05-16)
DX: F33.2 Major depressive disorder, recurrent severe without psychotic features (principal); B19.20 Unspecified viral hepatitis C without hepatic coma; F10.239 Alcohol dependence with withdrawal, unspecified; F11.23 Opioid dependence with withdrawal; F14.20 Cocaine dependence, uncomplicated; R45.851 Suicidal ideations; Z87.891 Personal history of nicotine dependence; D64.9 Anemia, unspecified

== ENCOUNTER 2018-07-11 09:46 | Inpatient (IN) | payer MEDICAID ==
[2018-07-11 09:46] VITALS: BMI 25.8
[2018-07-11 10:28] LABS: BASO % 0.6 % (0.0-2.0); EOS # 0.1 K/uL (0.0-0.7); EOS % 1.9 % (0.0-4.0); HEMOGLOBIN 13.6 g/dL (12.0-18.0); LYMPH # 1.3 K/uL (1.0-4.3); LYMPH % 20.4 % (20.0-40.0); MEAN CELL VOLUME 91.6 fL (80.0-94.0); MEAN CORPUSCULAR HEMOGLOBIN 30.2 pg (27.0-31.0); MEAN CORPUSCULAR HGB CONC 32.9 g/dL (33.0-37.0); MEAN PLATELET VOLUME 7.3 fL (7.2-11.7); MONO # 0.7 K/uL (0.0-0.8); MONO % 11.1 % (0.0-10.0); NEUT # 4.3 K/uL (1.8-7.0); RBC 4.53 Mil/uL (4.40-5.90); RED CELL DISTRIBUTION WIDTH 13.4 % (11.5-14.5); WHITE BLOOD COUNT 6.6 K/uL (4.8-10.8)
[2018-07-11 10:32] LABS: SQUAMOUS EPITHIAL 1 /hpf (0-5); URINE BILIRUBIN NEGATIVE (NEGATIVE); URINE BLOOD NEGATIVE (NEGATIVE); URINE CLARITY Clear (Clear); URINE COLOR Yellow (YELLOW); URINE GLUCOSE (UA) NORMAL (Normal); URINE LEUKOCYTE ESTERASE NEG Leu/uL (Negative); URINE PROTEIN NEGATIVE (NEGATIVE)
[2018-07-11 10:46] LABS: ALB/GLOB RATIO 1.5 (1.0-2.1); ALBUMIN 4.1 g/dL (3.5-5.0); ALT/SGPT 177 U/L (21-72); AST/SGOT 112 U/L (17-59); BLOOD UREA NITROGEN 14 mg/dL (9-20); CALCIUM 8.9 mg/dl (8.6-10.4); GFR NON-AFRICAN AMERICAN > 60
[2018-07-11 10:57] LABS: BARBITURATES, UR NEGATIVE (NEGATIVE); BENZODIAZEPINES, UR NEGATIVE (NEGATIVE)
[2018-07-11 11:04] LABS: OPIATES, UR POSITIVE (NEGATIVE); PHENCYCLIDINE, UR POSITIVE (NEGATIVE)
--- NOTE | 2018-07-11 11:37 | C.PDOC ---
History Of Present Illness 38 year old male presents to ED with suicidal ideations. Patient states "I'm not feeling myself since last night. I feel like I'm going to hurt myself." He has no current physical complaints, and denies HI. Time Seen by Provider: 07/11/18 09:54 Chief Complaint (Nursing): Psychiatric Evaluation History Per: Patient Onset/Duration Of Symptoms: Days (1) Current Symptoms Are (Timing): Still Present Suicide/Self Injury Attempted (Context): None Associated Symptoms: Suicidal Thoughts. denies: Suicidal Plan Involuntary Hold By: Emergency Physician Past Medical History Reviewed: Historical Data, Nursing Documentation, Vital Signs Vital Signs: Last Vital Signs Temp 98.3 F 07/11/18 09:51 Pulse 81 07/11/18 09:51 Resp 20 07/11/18 09:51 BP 149/84 07/11/18 09:51 Pulse Ox 98 07/11/18 09:51 - Medical History PMH: Anemia, Depression, Hepatitis (HEP C), HTN Surgical History: No Surg Hx - [facility] Procedures DETOXIFICATION SERVICES FOR SUBSTANCE ABUSE TREATMENT (05/16/18) GROUP ELECTRICAL ENGINEERING MANAGER FOR SUBSTANCE ABUSE TREATMENT, PSYCHOEDUCATION (01/25/16) GROUP PSYCHOTHERAPY (05/16/18) INDIV PSYCHOTHERAPY FOR SUBSTANCE ABUSE TREATMENT, SUPPORT (05/16/18) INDIV PSYCHOTHERAPY FOR SUBSTANCE ABUSE, COGNITIV BEHAVIORAL (05/16/18) INDIV PSYCHOTHERAPY FOR SUBSTANCE ABUSE, PSYCHOEDUCATION (05/16/18) INDIVIDUAL PSYCHOTHERAPY, COGNITIVE-BEHAVIORAL (01/22/17) INDIVIDUAL PSYCHOTHERAPY, SUPPORTIVE (01/22/17) Family History: States: No Known Family Hx - Social History Hx Tobacco Use: Yes Hx Alcohol Use: No (pt denies) Hx Substance Use: Yes (Heroin, cocaine, marijuana) - Immunization History Hx Tetanus Toxoid Vaccination: No Hx Influenza Vaccination: No Hx Pneumococcal Vaccination: No Review Of Systems Constitutional: Negative for: Fever, Chills, Weakness Cardiovascular: Negative for: Chest Pain, Palpitations Respiratory: Negative for: Cough, Shortness of Breath Gastrointestinal: Negative for: Nausea, Vomiting, Abdominal Pain Genitourinary: Negative for: Dysuria, Hematuria Skin: Negative for: Rash Neurological: Negative for: Weakness, Numbness, Dizziness Psych: Positive for: Suicidal ideation Physical Exam - Physical Exam Appears: Well, Non-toxic, No Acute Distress Skin: Normal Color, Warm, Dry, No Rash Head: Normacephalic Oral Mucosa: Moist Neck: Supple Cardiovascular: Rhythm Regular Respiratory: Normal Breath Sounds, No Rales, No Rhonchi, No Wheezing Gastrointestinal/Abdominal: Normal Exam, Bowel Sounds, Soft, No Tenderness Extremity: Normal ROM, No Pedal Edema, No Calf Tenderness Extremity: Bilateral: Atraumatic, Normal Color And Temperature Pulses: Left Radial: Normal, Right Radial: Normal Neurological/Psych: Oriented x3 ED Course And Treatment - Laboratory Results Result Diagrams: 07/11/18 10:20 07/11/18 10:20 Lab Results: Total Bilirubin 0.7 mg/dL (0.2-1.3) 07/11/18 10:20 AST 112 U/L (17-59) H D 07/11/18 10:20 ALT 177 U/L (21-72) H D 07/11/18 10:20 Alkaline Phosphatase 111 U/L (38-126) 07/11/18 10:20 Total Protein 7.0 g/dL (6.3-8.3) 07/11/18 10:20 Albumin 4.1 g/dL (3.5-5.0) 07/11/18 10:20 Globulin 2.8 gm/dL (2.2-3.9) 07/11/18 10:20 Albumin/Globulin Ratio 1.5 (1.0-2.1) 07/11/18 10:20 Urine Color Yellow (YELLOW) 07/11/18 10:20 Urine Clarity Clear (Clear) 07/11/18 10:20 Urine pH 6.0 (5.0-8.0) 07/11/18 10:20 Ur Specific [place] 1.023 (1.003-1.030) 07/11/18 10:20 Urine Protein Negative mg/dL (NEGATIVE) 07/11/18 10:20 Urine Glucose (UA) Normal mg/dL (Normal) 07/11/18 10:20 Urine Ketones Negative mg/dL (NEGATIVE) 07/11/18 10:20 Urine Blood Negative (NEGATIVE) 07/11/18 10:20 Urine Nitrate Negative (NEGATIVE) 07/11/18 10:20 Urine Bilirubin Negative (NEGATIVE) 07/11/18 10:20 Urine Urobilinogen 4.0 mg/dL (0.2-1.0) 07/11/18 10:20 Ur Leukocyte Esterase Neg Dianne/uL (Negative) 07/11/18 10:20 Urine WBC (Auto) < 1 /hpf (0-5) 07/11/18 10:20 Urine RBC (Auto) 1 /hpf (0-3) 07/11/18 10:20 Ur Squamous Epith Cells 1 /hpf (0-5) 07/11/18 10:20 O2 Sat by Pulse Oximetry: 98 (RA) Pulse Ox Interpretation: Normal Progress Note: Blood work, UA, UDS ordered and reviewed. 11:45am - Patient medically cleared. Accepted for psychiatric admission by Dr. Tam. Disposition - Disposition Disposition: HOSPITALIZED Disposition Time: 11:45 Condition: STABLE - Clinical Impression Clinical Impression: Substance abuse, Depression - Scribe Statement The provider has reviewed the documentation as recorded by the Scribe (Susan Holloway) All medical record entries made by the Scribe were at my direction and personally dictated by me. I have reviewed the chart and agree that the record accurately reflects my personal performance of the history, physical exam, medical decision making, and the department course for this patient. I have also personally directed, reviewed, and agree with the discharge instructions and disposition. Decision To Admit - Pt Status Changed To: Hospital Disposition Of: Inpatient - Admit Certification Admit to Inpatient:: After my assessment, the patient will require hospitalization for at least two midnights. This is because of the severity of symptoms shown, intensity of services needed, and/or the medical risk in this patient being treated as an outpatient. - InPatient: Physician Admission Certification: I certify that this patient requires 2 or more midnights of care for the following reason:: see notes - . Bed Request Type: Psychiatry Admitting Physician: Fifi Tam Patient Diagnosis: Depression, Substance abuse
--- NOTE | 2018-07-11 12:46 | PCM.BM ---
<Rosie Nieto - Last Filed: 07/11/18 12:43> Treatment Plan Problems - Problems identified on initial assessmt Chronic low self esteem Date Initiated: 07/11/18 Time Initiated: 12:46 Assessment reference: NA Status: Active low motivation to change Date Initiated: 07/11/18 Time Initiated: 12:47 Assessment reference: NA Status: Active Treatment assets and liabiliti Patient Assests: cooperative, ADL independent, good past tx response, cognitively intact Patient Liabilities: financial problems, poor support system, substance abuse - Milieu Protocol Maintain good personal hygiene: daily Encourage regular showers, daily Remind patient to perform daily oral care Conduct patient checks and document Observation sheet: Q15 minutes Maintain personal safety: every shift Educate patient to report safety concerns to staff, every shift Monitor environment for contraband/sharps Medication safety: Monitor for expected outcome, potential side effects: every shift, Assess barriers to learning: every shift, Assess readiness for medication education: every shift <Saleem Lindsey - Last Filed: 07/12/18 11:37> - Diagnosis (1) Major depressive disorder, single episode, unspecified Status: Acute Interventions: 07/12/18 11:37 * Assess/adjust medications daily and /or as needed * See patient on an individual basis 7x/week to assess symptoms of depression * Monitor for side effects & effectiveness of medications * (2) Opioid dependence Status: Acute Interventions: 07/12/18 11:37 * Assess 7x/week regarding severity of withdrawal * Educate regarding risks, benefits, side effects and alternatives of medications * Use Motivational Interviewing for abstinence * Use CBT for relapse prevention * Medication management for withdrawal symptoms * Encourage medication assisted treatment * <Wilda Mendoza - Last Filed: 07/12/18 12:11> Family Contact Family involvement: Famliy/SO not involved - Goals for Treatment Patient goals for treatment: "I want to go to rehab." Discharge/Continuing Care - Education Needs Education Needs: Patient Medication, Patient Coping Skills, Patient Placement options, Patient Community resources - Discharge Discharge Criteria: Tolerates medication w/o severe side effects, No longer exhibiting s/s of withdrawal, Reduction of target symptoms Discharge to:: Substance Abuse Rehab - Treatment Team Participation Discussed with Family/SO: No Was Patient/Family/SO present at Treatment Team Meeting: Yes
--- NOTE | 2018-07-11 13:26 | PCM.PSYCH ---
Initial Psychiatric Evaluation - Initial Psychiatric Evaluation Type of Admission: Voluntary Legal Status: Capacity Chief Complaint (in patient's own words): "I am depressed" History of Present Illness and Precipitating Events: This is a 38 year old male who is single with 3 children, unemployed, and homeless. He presented to the hospital for depression and suicidal ideations. Patient reports having thoughts of harming himself and his sister, prompting him to seek help. Patient confirms feeling depressed for the past several years. Patient states he uses 4 bags of heroin IV for the past 10 years and 1 gram of cocaine IV for the past 15 years. Last used both yesterday at 3pm. He began using to cope with his mother's , but continues because he is "scared of reality." Patient smokes 1/2 ppd for the past 15 years and uses marijuana sporadically. Patient denies benzodiazepine, methamphetamine, and alcohol use. Patient reports prior history of a inpatient psychiatric hospitalizations and inpatient detox programs. Patient followed up at [facility] after for depression treatment and maintenance therapy after his discharge in May 2018, but did not continue. He was given Remeron and Suboxone Patient reports depressed mood, agitation, trouble falling asleep, anhedonia, guilt about providing for his children, lack of energy, an inability to concentrate or begin tasks. Patient also reports withdrawal symptoms of stomach pain, sweating, restlessness, and leg pain. Patient appears anxious, but not severe withdrawal yet. Patient confirmed suicidal ideations, thoughts of harming his sister, and incomprehensible auditory hallucinations for the past 2 days. However, he agrees to follow safety plan and does not harbor any intention or plan now. Patient denies visual hallucinations and paranoia. Psych Hx: depression, anxiety, admitted 2x in the past, no lory attempt Fam Psych: denies PMHx: hypertension, hepatitis C Meds: denies Allergies: none SurgHx: hernia repair Past Psychiatric History - Past Psychiatric History Previous Treatment History: Inpatient Pertinent Medical Hx (Current Medical&Sleep Prob, Allergies): Allergies Allergy/AdvReac Type Severity Reaction Status Date / Time No Known Allergies Allergy Verified 07/11/18 09:49 No Known Home Med 07/11/18 Review of Systems - Psychiatric Psychiatric: Abnormal Sleep Pattern, Anhedonia, Anxiety, Depression, Difficulty Concentrating, Irritability. absent: Hallucinations, Homicidal Ideation, Paranoia, Suicidal Ideation Mental Status Examination - Personal Presentation Personal Presentation: Looks older than stated age - Affect Affect: Constricted - Motor Activity Motor Activity: Calm - Reliability in Providing Information Reliability in Providing Information: Good - Speech Speech: Organized - Mood Mood: Depressed, Anxious - Formal Thought Process Formal Thought Process: No Impairment - Cognitive Functions Orientation: Person, Place, Situation, Time Sensorium: Alert Attention/Concentration: Easily distracted Estimate of Intelligence: Average Judgement: Intact, as evidence by: Insight regarding need for hospitalization Memory: Recent intact, as evidence by: Ability to recall events of the day, Recent impaired, as evidenced by: Other - Risk Risk: Withdrawal, Diminished functioning - Strength & Assets Inventory Strength & Assets Inventory: Cooperative - Limitations Limitations: Living alone, Other DSM 5 DX - DSM 5 DSM 5 Diagnosis: Major depressive disorder recurrent, severe without psychotic features Opioid use disorder, severe Opioid withdrawal Cocaine use disorder, severe Cannabis use d/o severe PCP use d/o - severe - Recommended/Plan of Treatment Treatment Recommendations and Plan of Treatment: Remeron for depression Ativan and Haldol for agitation Gabapentin for augmentation As need medications Atarax, Motrin, and Clonidine All risks, benefits and alternatives of the meds discussed, and the pt agreed and understood. Attend groups and activities Individual therapy daily Psychoeducation and support daily Encourage compliance with meds and after care Refer to outpatient program Teach healthy lifestyle methods, i.e. diet, exercise, meditation Smoking cessation and patch if needed 36 minutes Projected ELOS: 5 days Prognosis: Good w treatment - Smoking Cessation Smoking Cessation Initiated: Yes
[2018-07-11] MEDS ORDERED: Pneumococcal 23-Valent Vaccine IM ONE (13:32)
[2018-07-12] MEDS: Multiple Vitamins Tab PO SCH (09:02)
--- NOTE | 2018-07-12 11:36 | PCM.PYCHPN ---
Psychiatric Progress Note - Psychiatric Progress Note Patient seen today, length of contact: 16 min Patient Chief Complaint: "I am not well yet" Problems Identified/Issues Discussed: The pt is seen, chart reviewed, case is discussed with staff. The pt is compliant with medications and reports no side-effects. Symptoms are improving but needs more time to stabilize and to avoid relapse. Pt attends groups and activities. Support given, psycho-education provided. After care discussed. Medication Change: Yes (detox changes daily) Medical Record Reviewed: Yes Mental Status Examination - Cognitive Function Orientation: Person, Place, Situation, Time Memory: Intact Attention: WNL Concentration: Poor Association: WNL Fund of Knowledge: WNL - Mood Mood: Depressed, Anxious - Affect Affect: Constricted - Speech Speech: Appropriate - Formal Thought Process Formal Thought Process: No Impairment - Suicidal Ideation Suicidal Ideation: No - Homicidal Ideation Homicidal Ideation: No Goal/Treatment Plan - Goal/Treatment Plan Need for Continued Stay: Discharge may exacerbated symptoms, Severe functional impairment Progress Toward Problem(s) and Goals/Treatment Plan: Remeron for depression Ativan and Haldol for agitation Gabapentin for augmentation As need medications Atarax, Motrin, and Clonidine All risks, benefits and alternatives of the meds discussed, and the pt agreed and understood. Attend groups and activities Individual therapy daily Psychoeducation and support daily Encourage compliance with meds and after care Refer to outpatient program Teach healthy lifestyle methods, i.e. diet, exercise, meditation Smoking cessation and patch if needed Estimated Date of D/C: 07/16/18
[2018-07-13] MEDS: Multiple Vitamins Tab PO SCH (09:32)
--- NOTE | 2018-07-13 23:04 | PCM.PYCHPN ---
Psychiatric Progress Note - Psychiatric Progress Note Patient seen today, length of contact: 15 minutes Patient Chief Complaint: I am feeling little better. Problems Identified/Issues Discussed: Patient seen, chart reviewed, case discussed with the staff. Issues related to illness and treatment were discussed with the patient and staff. Reported compliant with treatment with no adverse effects. Tolerating treatment very well. Mood reported as anxious. Affect appropriate. Patient reported feeling little better as still has some withdrawal symptoms. Aftercare discussed with the patient. Patient denied any delusions, auditory or visual hallucinations, no suicidal ideations or homicidal ideations at the time of evaluation Medical Problems: Hypertension Hepatitis C Diagnostic Results: Reviewed DSM 5 Symptoms Update: Some improvement with treatment. Medication Change: No Medical Record Reviewed: Yes Mental Status Examination - Cognitive Function Orientation: Person, Place, Situation, Time Memory: Intact Attention: WNL Concentration: WNL Association: WNL Fund of Knowledge: [facility] Decription of patient's judgement and insights: Fair - Mood Mood: Anxious - Affect Affect: Other (Appropriate) - Speech Speech: Appropriate - Formal Thought Process Formal Thought Process: No Impairment Psychotic Thoughts and Behaviors: None - Suicidal Ideation Suicidal Ideation: No - Homicidal Ideation Homicidal Ideation: No Goal/Treatment Plan - Goal/Treatment Plan Need for Continued Stay: Remain at risks for inpatient hospitalization, Discharge may exacerbated symptoms, Severe functional impairment Progress Toward Problem(s) and Goals/Treatment Plan: Patient education. Supportive therapy. CBT for relapse prevention. CT for abstinence. Continue treatment as before. Patient will go to [facility] for follow-up care after discharge from the hospital. Estimated Date of D/C: 07/16/18 - Smoking Cessation Smoking Cessation Initiated: No
[2018-07-14] MEDS: Multiple Vitamins Tab PO SCH (09:23)
[2018-07-15 06:50] VITALS: TEMP 98.2
[2018-07-15] MEDS: Multiple Vitamins Tab PO SCH (09:29)
--- NOTE | 2018-07-15 12:12 | PCM.PYCHPN ---
Psychiatric Progress Note - Psychiatric Progress Note Patient seen today, length of contact: 16 min Patient Chief Complaint: "I am very worried" Problems Identified/Issues Discussed: The pt is seen, chart reviewed, case discussed with staff. Support and psychoeducation given, CBT and [place] used briefly Pt is improving slowly and needs more time, still has ongoing symptoms. No SEs from medications, risks discussed. After care discussed. He wants to go to [facility], even though they disallow meds there Risks discussed - he understood Medication Change: Yes Medical Record Reviewed: Yes Mental Status Examination - Cognitive Function Orientation: Person, Place, Situation, Time Memory: Intact Attention: WNL Concentration: WNL Association: WN Fund of Knowledge: WNL - Mood Mood: Anxious - Affect Affect: Other (Appropriate) - Speech Speech: Appropriate - Formal Thought Process Formal Thought Process: No Impairment - Suicidal Ideation Suicidal Ideation: No - Homicidal Ideation Homicidal Ideation: No Goal/Treatment Plan - Goal/Treatment Plan Need for Continued Stay: Remain at risks for inpatient hospitalization, Discharge may exacerbated symptoms, Severe functional impairment Progress Toward Problem(s) and Goals/Treatment Plan: Remeron for depression Ativan and Haldol for agitation Gabapentin for augmentation As need medications Atarax, Motrin, and Clonidine All risks, benefits and alternatives of the meds discussed, and the pt agreed and understood. Attend groups and activities Individual therapy daily Psychoeducation and support daily Encourage compliance with meds and after care Refer to outpatient program Teach healthy lifestyle methods, i.e. diet, exercise, meditation Smoking cessation and patch if needed Estimated Date of D/C: 07/16/18
--- NOTE | 2018-07-16 09:31 | PCM.PYCHDC ---
Mental Status Examination - Mental Status Examination Orientation: Person Discharge Summary - Discharge Note Consultations:: List each consultation separately and include: 1. Reason for request. 2. Findings. 3. Follow-up Summary of Hospital Course include:: 1. Description of specific treatment plan utilized for patients during their course of treatmen. 2. Summarize the time- course for resolution of acute symptoms and/or regressed behaviors. 3. Describe issues identified and worked on during hospitalization. 4. Describe medication utilized. 5. Describe medical problems identified and treated. 6. Reassessment of suicide risk Summary of Hospital Course: This is a 38 year old male who is single with 3 children, unemployed, and homeless. He presented to the hospital for depression and suicidal ideations. Patient reports having thoughts of harming himself and his sister, prompting him to seek help. Patient confirms feeling depressed for the past several years. Patient states he uses 4 bags of heroin IV for the past 10 years and 1 gram of cocaine IV for the past 15 years. Last used both yesterday at 3pm. He began using to cope with his mother's , but continues because he is "scared of reality." Patient smokes 1/2 ppd for the past 15 years and uses marijuana sporadically. Patient denies benzodiazepine, methamphetamine, and alcohol use. Patient reports prior history of a inpatient psychiatric hospitalizations and inpatient detox programs. Patient followed up at [facility] after for depression treatment and maintenance therapy after his discharge in May 2018, but did not continue. He was given Remeron and Suboxone Patient reports depressed mood, agitation, trouble falling asleep, anhedonia, guilt about providing for his children, lack of energy, an inability to concentrate or begin tasks. Patient also reports withdrawal symptoms of stomach pain, sweating, restlessness, and leg pain. Patient appears anxious, but not severe withdrawal yet. Patient confirmed suicidal ideations, thoughts of harming his sister, and incomprehensible auditory hallucinations for the past 2 days. However, he agrees to follow safety plan and does not harbor any intention or plan now. Patient denies visual hallucinations and paranoia. Psych Hx: depression, anxiety, admitted 2x in the past, no lory attempt Fam Psych: denies PMHx: hypertension, hepatitis C Meds: denies Allergies: none SurgHx: hernia repair He is accepted by [id number], but they won't take him with meds - He understood and agreed. Risks discussed. - Diagnosis (1) Major depressive disorder, single episode, unspecified Current Visit: No Status: Acute (2) Opioid dependence Current Visit: No Status: Acute - Final Diagnosis (DSM 5) Condition upon Discharge: GOOD Disposition: HOME/ ROUTINE Follow-up Treatment Plan: Remeron for depression Ativan and Haldol for agitation Gabapentin for augmentation As need medications Atarax, Motrin, and Clonidine All risks, benefits and alternatives of the meds discussed, and the pt agreed and understood. Attend groups and activities Individual therapy daily Psychoeducation and support daily Encourage compliance with meds and after care Refer to outpatient program Teach healthy lifestyle methods, i.e. diet, exercise, meditation Smoking cessation and patch if needed
[2018-07-16] MEDS: Multiple Vitamins Tab PO SCH (09:38)
[2018-07-16 10:18] VITALS: BP 142/87; PULSE 96; RESP 18
[2018-07-18 17:08] VITALS: O2SAT 98
== END 2018-07-16 13:23 | disposition home or self-care (01) | DRG 430 ==
LOC: C.ER 09:46 → C.5E 11:45
PROVIDERS: ADMIT Psychiatry & Neurology Psychiatry; ATTEND Psychiatry & Neurology Psychiatry
PROC: GZ3ZZZZ Medication Management (ICD-10-PCS; principal; 2018-07-11)
PROC: HZ86ZZZ Medication Management for Substance Abuse Treatment, Clonidine (ICD-10-PCS; 2018-07-11)
PROC: HZ80ZZZ Medication Management for Substance Abuse Treatment, Nicotine Replacement (ICD-10-PCS; 2018-07-11)
PROC: GZHZZZZ Group Psychotherapy (ICD-10-PCS; 2018-07-11)
PROC: GZ56ZZZ Individual Psychotherapy, Supportive (ICD-10-PCS; 2018-07-11)
DX: F33.2 Major depressive disorder, recurrent severe without psychotic features (principal); F11.23 Opioid dependence with withdrawal; F14.20 Cocaine dependence, uncomplicated; F16.10 Hallucinogen abuse, uncomplicated; F12.20 Cannabis dependence, uncomplicated; F17.210 Nicotine dependence, cigarettes, uncomplicated; R45.851 Suicidal ideations; B19.20 Unspecified viral hepatitis C without hepatic coma; I10 Essential (primary) hypertension